=== PATIENT | female | born 1945 | race Caucasian/White ===

== ENCOUNTER 2017-07-20 01:29 | Emergency (ER) | payer OTHER ==
[~2017-07-20] VITALS: Ht 149.8 cm; Wt 72.6 kg
[~2017-07-20 01:29] MED LIST: ADVAIR IR; DEXILANT60 M1 PO; HYDROCODONE BIT1 T11 PO; LIDODERM 5% PATC1 EA PO; LOVASTATIN40 MG PO; METOPROLOL SR100 MG PO; NEURONTIN100 MG PO; SYMBICORT1 AE1 INH; VICODIN 5-3001 EACH PO; ZOLOF
[2017-07-20 01:43] LABS: BASO # 0.1 10*3/uL (0.0-0.1); BASO % 0.4 % (0.0-1.0); EOS # 0.1 10*3/uL (0.0-0.4); LYMPH # 2.7 10*3/uL (1.3-4.4); LYMPH % 19.2 % (27.0-41.0); MEAN CELL VOLUME 77.4 fl (81.0-99.0); MEAN CORPUSCULAR HGB 21.3 pg (27.0-31.0); MEAN CORPUSCULAR HGB CONC 27.5 g/dl (33.0-37.0); MEAN PLATELET VOLUME 11.3 fl (9.6-12.3); MONO % 6.9 % (3.0-9.0); NEUT # 9.9 10*3/uL (2.3-7.9); NEUT % 71.1 % (47.0-73.0); PLATELET COUNT AUTOMATED 279 10*3/uL (130-400); RED BLOOD COUNT 5.17 10*6/uL (4.10-5.10); RED CELL DISTRI WIDTH 19.2 % (0-14.5); WHITE BLOOD COUNT 13.9 10*3/uL (4.8-10.8)
[2017-07-20 02:06] LABS: ALBUMIN 3.1 gm/dl (3.1-4.5); CREATININE 1.27 mg/dL (0.55-1.02); POTASSIUM 5.2 mmol/L (3.5-5.1); TOTAL PROTEIN 6.8 gm/dL (6.4-8.2)
[2017-07-20 02:07] LABS: TROPONIN I 0.987 ng/ml (<0.045)
[2017-07-20 02:31] LABS: BILIRUBIN NEGATIVE (NEGATIVE); BLOOD 1+ (NEGATIVE); CLARITY SL CLOUDY (CLEAR); COLOR YELLOW (YELLOW); GLUCOSE 1+ (NEGATIVE); KETONE NEGATIVE (NEGATIVE); LEUKO ESTERASE 1+ (NEGATIVE); NITRITE POSITIVE (NEGATIVE); PH 5.5 (5.0-9.0); SPECIFIC GRAVITY 1.025 (1.005-1.030); UROBILINOGEN 0.2 E.U./dl (0.2-1.0)
[2017-07-20 02:48] LABS: BACTERIA 4+; WBC 31-40 wbc/hpf (0-5)
[2017-07-20 02:49] LABS: RBC 16-20 rbc/hpf (0-2)
[2017-07-20 06:10] VITALS: BP 110/62
== END 2017-07-20 06:49 | disposition short-term general hospital (02) ==
LOC: ED 01:29
PROVIDERS: Emergency Medicine
DX: J96.00 Acute respiratory failure, unspecified whether with hypoxia or hypercapnia (principal); Z90.710 Acquired absence of both cervix and uterus; I10 Essential (primary) hypertension; Z79.899 Other long term (current) drug therapy; Z88.2 Allergy status to sulfonamides; Z88.6 Allergy status to analgesic agent

== ENCOUNTER 2017-08-30 12:08 | Emergency (ER) | payer OTHER ==
[~2017-08-30] VITALS: Wt 65.8 kg
[2017-08-30] MEDS ORDERED: COREG25 MG PO (12:14)
[2017-08-30] MEDS ORDERED: LIPITOR40 MG PO (12:14)
[2017-08-30] MEDS ORDERED: ASPIRIN81 M1 PO (12:14)
[2017-08-30] MEDS ORDERED: LOSARTAN POTASS50 M1 PO (12:15)
[2017-08-30] MEDS ORDERED: DOXYCYCLINE100 MG PO (12:15)
[2017-08-30] MEDS ORDERED: BRILINTA90 M1 PO (12:15)
[2017-08-30] MEDS ORDERED: NEURONTIN300 MG PO (12:16)
[2017-08-30] MEDS ORDERED: OMEPRAZOLE20 M2 PO (12:16)
[2017-08-30] MEDS ORDERED: ZOLOFT100 MG PO (12:16)
[2017-08-30] MEDS ORDERED: COUMADIN5 M2 PO (12:16)
[2017-08-30] MEDS ORDERED: SYMB160 INH (12:17)
[2017-08-30 12:38] VITALS: BP 131/73
[2017-08-30 12:42] LABS: BASO % 0.3 % (0.0-1.0); EOS # 0.1 10*3/uL (0.0-0.4); EOS % 0.6 % (1.0-4.0); HEMATOCRIT 25.4 % (37.0-47.0); HEMOGLOBIN 7.3 g/dl (12.0-16.0); LYMPH # 0.9 10*3/uL (1.3-4.4); LYMPH % 6.9 % (27.0-41.0); MEAN CELL VOLUME 74.9 fl (81.0-99.0); MEAN CORPUSCULAR HGB 21.5 pg (27.0-31.0); MEAN CORPUSCULAR HGB CONC 28.7 g/dl (33.0-37.0); MEAN PLATELET VOLUME 10.7 fl (9.6-12.3); MONO # 1.2 10*3/uL (0.1-1.0); MONO % 9.1 % (3.0-9.0); NEUT # 10.7 10*3/uL (2.3-7.9); NEUT % 82.6 % (47.0-73.0); PLATELET COUNT AUTOMATED 267 10*3/uL (130-400); RED BLOOD COUNT 3.39 10*6/uL (4.10-5.10); RED CELL DISTRI WIDTH 19.9 % (0-14.5)
[2017-08-30 13:00] LABS: ALBUMIN 3.1 gm/dl (3.1-4.5); ALKALINE PHOSPHATASE 101 U/L (45-117); BUN 14 mg/dl (7-24); CHLORIDE 108 mmol/L (98-107); CREATININE 1.03 mg/dL (0.55-1.02); LIPASE 239 U/L (73-393); SGOT/AST 21 IU/L (3-35); SGPT/ALT 17 U/L (12-78); SODIUM 140 mmol/L (136-145); TOTAL PROTEIN 6.9 gm/dL (6.4-8.2); TROPONIN I 0.018 ng/ml (<0.045)
[2017-08-30 13:05] LABS: ACT PARTIAL THROMBO TIME 62.3 SECONDS (20.8-31.5)
[2017-08-30 13:10] LABS: INTERNATIONAL NORM RATIO > 11.7 (2.0-3.5)
== END 2017-08-30 12:48 | disposition short-term general hospital (02) ==
LOC: ED 12:08
PROVIDERS: Emergency Medicine
DX: I62.9 Nontraumatic intracranial hemorrhage, unspecified (principal); I10 Essential (primary) hypertension; I25.2 Old myocardial infarction; Z79.899 Other long term (current) drug therapy; Z79.82 Long term (current) use of aspirin; Z79.01 Long term (current) use of anticoagulants; Z88.2 Allergy status to sulfonamides; Z88.5 Allergy status to narcotic agent; Z90.710 Acquired absence of both cervix and uterus; Z90.49 Acquired absence of other specified parts of digestive tract; Z98.890 Other specified postprocedural states; Z88.8 Allergy status to other drugs, medicaments and biological substances

== ENCOUNTER 2018-09-13 15:52 | Emergency (ER) | payer OTHER ==
[~2018-09-13] VITALS: Wt 74.8 kg
[~2018-09-13 15:52] MED LIST changes: +ASPIRIN81 M1 PO; +BRILINTA90 M1 PO; +COREG25 MG PO; +COUMADIN5 M2 PO; +DOXYCYCLINE100 MG PO; +LIPITOR40 MG PO; +LOSARTAN POTASS50 M1 PO; +NEURONTIN300 MG PO; +OMEPRAZOLE20 M2 PO; +SYMB160 INH; +ZOLOFT100 MG PO
[2018-09-13 20:30] VITALS: BP 146/72
[2018-10-08] MEDS ORDERED: FERROUS SULFAT325 MG PO (18:50)
[2018-10-08] MEDS ORDERED: NORVASC5 MG PO (18:53)
[2018-10-08] MEDS ORDERED: NORCO 5-325 TA1 EACH PO (18:53)
[2018-10-08] MEDS ORDERED: PROTONIX40 MG PO (18:54)
[2018-10-08] MEDS ORDERED: SINEMET 25-1001 EACH PO (18:54)
[2018-10-08] MEDS ORDERED: SYMB160 INH (18:54)
[2018-10-11] MEDS ORDERED: NORCO 5-325 TA1 EACH PO (08:22)
[2018-10-11] MEDS ORDERED: PREDNISONE5 MG PO (08:25)
[2018-10-11] MEDS ORDERED: CEFUROXIME AXE250 MG PO (08:25)
== END 2018-09-13 20:43 | disposition short-term general hospital (02) ==
LOC: ED 15:52
DX: S42.292A Other displaced fracture of upper end of left humerus, initial encounter for closed fracture (principal); S42.392A Other fracture of shaft of left humerus, initial encounter for closed fracture; M54.2 Cervicalgia; J44.9 Chronic obstructive pulmonary disease, unspecified; Z88.2 Allergy status to sulfonamides; Z88.8 Allergy status to other drugs, medicaments and biological substances; Z88.5 Allergy status to narcotic agent; Z79.82 Long term (current) use of aspirin; Z79.899 Other long term (current) drug therapy; Z79.2 Long term (current) use of antibiotics; Z79.01 Long term (current) use of anticoagulants; Z90.710 Acquired absence of both cervix and uterus; Z90.49 Acquired absence of other specified parts of digestive tract; W05.0XXA Fall from non-moving wheelchair, initial encounter; Y93.89 Activity, other specified; Y92.098 Other place in other non-institutional residence as the place of occurrence of the external cause; Y99.8 Other external cause status

== ENCOUNTER 2019-05-16 03:38 | Inpatient (IN) | payer OTHER ==
[~2019-05-16] VITALS: Ht 149.9 cm; Wt 59.4 kg
[2019-05-16] VITALS (8 sets, daily range): BP systolic 119–161; BP diastolic 48–96
[~2019-05-16 03:38] MED LIST changes: +CEFUROXIME AXE250 MG PO; +FERROUS SULFAT325 MG PO; +NORCO 5-325 TA1 EACH PO; +NORVASC5 MG PO; +PREDNISONE5 MG PO; +PROTONIX40 MG PO; +SINEMET 25-1001 EACH PO
[2019-05-16 03:57] LABS: BASO % 0.3 % (0.0-1.0); HEMATOCRIT 35.3 % (37.0-47.0); HEMOGLOBIN 10.2 g/dl (12.0-16.0); LYMPH # 0.6 10*3/uL (1.3-4.4); LYMPH % 5.3 % (27.0-41.0); MEAN CORPUSCULAR HGB 22.8 pg (27.0-31.0); MEAN CORPUSCULAR HGB CONC 28.9 g/dl (33.0-37.0); MEAN PLATELET VOLUME 11.7 fl (9.6-12.3); MONO # 1.3 10*3/uL (0.1-1.0); MONO % 10.8 % (3.0-9.0); NEUT # 9.6 10*3/uL (2.3-7.9); PLATELET COUNT AUTOMATED 207 10*3/uL (130-400); RED BLOOD COUNT 4.47 10*6/uL (4.10-5.10); RED CELL DISTRI WIDTH 16.6 % (0-14.5); WHITE BLOOD COUNT 11.6 10*3/uL (4.8-10.8)
[2019-05-16 04:12] LABS: ALBUMIN 3.5 gm/dl (3.1-4.5); CREATININE 1.47 mg/dL (0.55-1.02); POTASSIUM 3.3 mmol/L (3.5-5.1); TOTAL PROTEIN 6.5 gm/dL (6.4-8.2)
[2019-05-16 04:13] LABS: TROPONIN I 0.027 ng/ml (<0.045)
--- NOTE | 2019-05-16 06:21 | NUR ---
A 73, admitted to 5E, under the services of Dr. JORGE ALEXANDRA,RAQUEL Ohara with a diagnosis of UNRESPOMSIVE STATE. Chief complaint is STATUS POST FALL, UNRESPONSIVE. Patient arrived via bed from ER. Monitor applied. Initial assessment completed. Vital signs taken and recorded. DR. JORGE ALEXANDRA,RAQUEL Ohara notified of admission to 5EAST. Orders received. See assessment for past medical history, medications and allergies. Patient and/or family oriented to 5E. visitation policy reviewed. Clothing/patient valuable form completed. AMEE COLÓN RN
--- NOTE | 2019-05-16 07:00 | NUR ---
RECEIVED REPORT FROM NURSE RYAN ROBB. IN TO SEE AND ASSESS PT. PT UNRESPONSIVE. DAUGHTER STATES PT HAS BEEN UNRESPONSIVE SINCE FALL AT HOME LAST NIGHT. PT SHOWS NO SIGNS OF DISTRESS. PT MOUTH BREATHING. RESPS 13. VSS AT THIS TIME. 98% ON 6L NC. WILL CONTINUE TO MONITOR.
[2019-05-16] MEDS ORDERED: MORPHINE S10 MG/1 M1 IV (07:58)
[2019-05-16] MEDS ORDERED: ATIVAN4 MG/1 ML IV (07:58)
--- NOTE | 2019-05-16 08:18 | NUR ---
TRAINING ASSISTANT received Hospice referral. TRAINING ASSISTANT faxed referral to [facility]. There is no HP as of now. Will fax when it is available. -KRISTY Dobson
--- NOTE | 2019-05-16 08:47 | NUR ---
SPOKE WITH MARIA GUADALUPE FROM [facility]. UPDATED HIM ON PTS CONDITION, HX AND LAST VITAL SIGNS.
--- NOTE | 2019-05-16 09:04 | NUR ---
KRISTY received call from [facility]. Patient is not appropriate at this time for Hospice. If patients symptoms change, we can reconsult with [facility]. [facility] stated that he spoke with RYAN Diaz and his RN Registered Nurse Midwife about this patient and all were in agreeance. RESIDENTIAL SPECIALIST to follow. -KRISTY Dobson
--- NOTE | 2019-05-16 10:53 | NUR ---
PER GIVEN ATROPINE NOW. ATROPINE ADMINISTERED ORDERED.
--- NOTE | 2019-05-16 12:10 | NUR ---
BRIDGE REPAIR CREW PERSON faxed patients HP to [facility] for reconsideration. -KRISTY Dobson
--- NOTE | 2019-05-16 12:49 | NUR ---
KRISTY received call back from [facility], he stated Talita Lozada MD stated patient does not meet GIP criteria. GRAIN SAMPLER went and spoke with the daughter. She stated that she would like the referral sent to [facility] after she was provided with a list of Hospice Agencies. GRAIN SAMPLER contacted [facility] and a referral was faxed to [facility]. -KRISTY Dobson
--- NOTE | 2019-05-16 13:54 | NUR ---
DIRECTOR OF SUSTAINABILITY PROGRAMS spoke with [facility]. She just got done reviewing referral. [facility] is looking into availability for RN to come assess the patient. DIRECTOR OF SUSTAINABILITY PROGRAMS will notify RN Joe. -KRISTY Dobson
--- NOTE | 2019-05-16 14:52 | NUR ---
[facility] HERE BETWEEN 4 AND 5.
--- NOTE | 2019-05-16 14:56 | NUR ---
CORROSION ENGINEER spoke with [facility]. RYAN Donaldson will be able to meet with the patients family between 4pm-5pm this evening. CORROSION ENGINEER spoke with patients daughter Kelly at bedside, she is agreeable to this. CORROSION ENGINEER informed RYAN Diaz. -KRISTY Dobson
--- NOTE | 2019-05-16 18:26 | NUR ---
NOTIFIED OF [facility] RECOMMENDATIONS AND HE WILL CERTIFY FOR [facility] AND DIRECT CARE.
--- NOTE | 2019-05-16 18:39 | NUR ---
NEW ORDER RECEIVED FOR ROBINUL 0.2MG IV Q4HR.
--- NOTE | 2019-05-16 18:44 | NUR ---
PT BEING READMITTED UNDER HOSPICE.
--- NOTE | 2019-05-16 18:45 | NUR ---
Discharge instructions reviewed with patient/family. Patient receptive and verbalizes understanding. Follow-up care arranged. Written instructions given to patient/family. BEING READMITTED UNDER HOSPICE. MILAGRO WINSTON
== END 2019-05-16 19:10 | disposition other institution (70) | DRG 202 ==
LOC: ED 03:38 → 5E 06:07 → EDHOLD 06:07 → 5E 06:09
PROVIDERS: Emergency Medicine; ADMIT Internal Medicine
DX: J39.8 Other specified diseases of upper respiratory tract (principal); J96.11 Chronic respiratory failure with hypoxia; F33.0 Major depressive disorder, recurrent, mild; J44.9 Chronic obstructive pulmonary disease, unspecified; Z66 Do not resuscitate; J45.20 Mild intermittent asthma, uncomplicated; I25.10 Atherosclerotic heart disease of native coronary artery without angina pectoris; I10 Essential (primary) hypertension; G20 Parkinson's disease; Z51.5 Encounter for palliative care; Z95.5 Presence of coronary angioplasty implant and graft; Z86.73 Personal history of transient ischemic attack (TIA), and cerebral infarction without residual deficits; Z88.5 Allergy status to narcotic agent; Z88.2 Allergy status to sulfonamides; Z88.8 Allergy status to other drugs, medicaments and biological substances; Z90.49 Acquired absence of other specified parts of digestive tract; Z90.710 Acquired absence of both cervix and uterus